=== PATIENT | female | born 1950 | race Caucasian/White ===

== ENCOUNTER 2019-09-22 11:03 | Outpatient (CLI) | payer MEDICARE ==
[2019-09-22] MEDS ORDERED: METO25TA91 PO (11:54)
[2019-09-22] MEDS ORDERED: probiotic PO (11:54)
[2019-09-22] MEDS ORDERED: acetaminophen PO (11:54)
[2019-09-22] MEDS ORDERED: TRAM50TA2 PO (11:54)
[2019-09-22] MEDS ORDERED: LOTE5DRO2 OP (11:54)
[2019-09-22] MEDS ORDERED: [UNRECOGNIZED DRUG - OTHER] OP (11:54)
[2019-09-22] MEDS ORDERED: aspirin PO (11:54)
[2019-09-22] MEDS ORDERED: synthroid PO (11:54)
[2019-09-22] MEDS ORDERED: ATORVASTATIN PO (11:54)
[2019-09-22] MEDS ORDERED: vitamin D3 PO (11:54)
[2019-09-22] MEDS ORDERED: biotin PO (11:54)
[2019-09-22] MEDS ORDERED: MULT-252 PO (11:54)
[2019-09-22] MEDS ORDERED: HYDROCORTISONE TP (11:54)
[2019-09-22] MEDS ORDERED: fish oil PO (11:54)
[2019-09-22] MEDS ORDERED: CYCL1DRO OP (11:54)
[2019-09-22] MEDS ORDERED: hyaluronic acid PO (11:54)
[2019-09-22] MEDS ORDERED: [UNRECOGNIZED DRUG - OTHER] PO (11:54)
[2019-09-22] MEDS ORDERED: trazadone PO (11:54)
[2019-09-22 12:36] LABS: MICROSCOPIC NOT IND
[2019-09-22 12:38] LABS: CULTURE INDICATED? NO
[2019-09-22 12:40] LABS: BASOPHILS # (AUTO) 0.02 x10^3/uL (0-0.1); BASOPHILS % (AUTO) 0 % (0-1); EOSINOPHILS # (AUTO) 0.12 x10^3/uL (0-0.4); EOSINOPHILS % (AUTO) 2 % (1-7); LYMPHOCYTES # (AUTO) 2.21 x10^3/uL (1-3.4); LYMPHOCYTES % (AUTO) 30 % (22-44); MD NO; MEAN CORPUSCULAR HEMOGLOBIN 32.8 pg (27.0-34.8); MEAN CORPUSCULAR HGB CONC 33.1 g/dL (32.4-35.8); MEAN CORPUSCULAR VOLUME 99.2 fL (80-100); MEAN PLATELET VOLUME 7.7 fL (7.4-10.4); MONOCYTES # (AUTO) 0.59 x10^3/uL (0.2-0.8); MONOCYTES % (AUTO) 8 % (2-9); NEUTROPHILS # (AUTO) 4.46 x10^3/uL (1.8-6.8); NEUTROPHILS % (AUTO) 60 % (42-75); PLATELET COUNT 255 x10^3/uL (130-400); RED BLOOD COUNT 4.06 x10^6/uL (3.82-5.3); RED CELL DISTRIBUTION WIDTH 14.3 % (9.6-15.2)
[2019-09-22 12:46] LABS: INTERNATIONAL NORMALIZED RATIO 1.02 (0.93-1.1); PROTHROMBIN TIME 10.7 Seconds (9.6-11.5)
[2019-09-22 12:51] LABS: ANION GAP 5 mmol/L (5-15); CALCIUM 8.9 mg/dL (8.5-10.1); CHLORIDE 109 mmol/L (98-107); CREATININE 0.74 mg/dL (0.55-1.02)
== END 2019-09-22 23:59 | disposition home or self-care (01) ==
LOC: STAR 11:03 → MERGE 11:30 → STAR 23:59
PROVIDERS: ATTEND Orthopaedic Surgery
DX: Z01.818 Encounter for other preprocedural examination (principal); M17.11 Unilateral primary osteoarthritis, right knee; I44.7 Left bundle-branch block, unspecified
CPT/HCPCS: 36415; 80048; 81003; 85025; 85610; 85730; 87081; 93005

== ENCOUNTER 2019-10-11 12:00 | Observation (INO) | payer MEDICARE ==
[~2019-10-11] VITALS: Ht 165.1 cm; Wt 75.0 kg
[~2019-10-11 12:00] MED LIST: ATORVASTATIN PO; CYCL1DRO OP; HYDROCORTISONE TP; LOTE5DRO2 OP; METO25TA91 PO; MULT-252 PO; TRAM50TA2 PO; [UNRECOGNIZED DRUG - OTHER] OP; [UNRECOGNIZED DRUG - OTHER] PO; acetaminophen PO; aspirin PO; biotin PO; fish oil PO; hyaluronic acid PO; probiotic PO; synthroid PO; trazadone PO; vitamin D3 PO
[2019-10-11] MEDS ORDERED: VANCOMYCIN PER PHARMACY MC STA (12:09)
[2019-10-11] MEDS ORDERED: LIDOCAINE-MPF 1%, 2ML INFIL ONE (12:30)
[2019-10-11] MEDS ORDERED: LACTATED RINGERS 1,000 ML IV SCH (12:30)
[2019-10-11] MEDS ORDERED: GABAPENTIN 300 MG CAPSULE PO ONE (12:30)
[2019-10-11] MEDS ORDERED: ACETAMINOPHEN 500 MG TABLET PO ONE (12:30)
[2019-10-11] MEDS ORDERED: KETOROLAC 60 MG/2 ML ONE (12:31)
[2019-10-11] MEDS ORDERED: TRANEXAMIC ACID 100 MG/ML, 10ML ONE (12:32)
[2019-10-11] MEDS ORDERED: VANCOMYCIN 1,000 MG ONE ×2 (12:32→15:46)
[2019-10-11] MEDS ORDERED: EPINEPHRINE 1 MG/ML, 1ML ONE (12:32)
[2019-10-11] MEDS ORDERED: ROPIvacaine/PF 0.2%, 20 ML ONE (12:32)
[2019-10-11 12:39] VITALS: BP 128/78
[2019-10-11] MEDS ORDERED: LIDOCAINE-MPF 1%, 2ML ONE (12:58)
[2019-10-11] MEDS ORDERED: VANCOMYCIN 1,500 MG in SODIUM CHLORIDE 0.9% 250 ML IV ONE (13:00)
[2019-10-11] MEDS ORDERED: MIDAZOLAM 1 MG/ML, 2ML ONE (13:53)
[2019-10-11] MEDS ORDERED: FENTANYL PF 100 MCG/2ML ONE (13:53)
[2019-10-11] MEDS ORDERED: PROPOFOL 50 ML ONE (15:24)
[2019-10-11] MEDS ORDERED: MEPERIDINE/PF 25MG/ML,1ML IVPush PRN (15:30)
[2019-10-11] MEDS ORDERED: METOPROLOL 1 MG/ML, 5ML IV PRN (15:30)
[2019-10-11] MEDS ORDERED: FENTANYL PF 100 MCG/2ML IV PRN (15:30)
[2019-10-11] MEDS ORDERED: OXYcodone 5 MG/5 ML ORAL.SOL UDC PO PRN (15:30)
[2019-10-11] MEDS ORDERED: hydrALAzine 20 MG/ML, 1ML IV PRN (15:30)
[2019-10-11] MEDS ORDERED: MIDAZOLAM 1 MG/ML, 2ML IV PRN (15:30)
[2019-10-11] MEDS ORDERED: HYDROmorphone 2 MG/ML, 1ML IVPush PRN (15:30)
[2019-10-11] MEDS ORDERED: ALBUTEROL/IPRATROPIUM 2.5MG/0.5MG, 3 ML NPPB PRN (15:30)
[2019-10-11] MEDS ORDERED: PROMETHAZINE 25 MG/ML, 1ML IV PRN (15:30)
[2019-10-11] MEDS ORDERED: ONDANSETRON 2MG/ML, 2ML ONE (15:34)
[2019-10-11] MEDS ORDERED: LIDOCAINE-MPF 2% ,5ML ONE (15:34)
[2019-10-11] MEDS ORDERED: PROPOFOL 10 MG/ML, 20ML ONE (15:34)
[2019-10-11] MEDS ORDERED: CEFAZOLIN 1,000 MG ONE (15:34)
[2019-10-11] MEDS ORDERED: BUPIVACAINE/PF 0.25% ONE (15:34)
[2019-10-11] MEDS ORDERED: DEXAMETHASONE 4 MG/ML, 1ML ONE (15:34)
[2019-10-11] MEDS ORDERED: LORazepam 1MG TABLET PO PRN (16:30)
[2019-10-11] MEDS ORDERED: ONDANSETRON 2MG/ML, 2ML IVPush PRN (16:30)
[2019-10-11] MEDS ORDERED: ZOLPIDEM 5MG TABLET PO PRN (16:30)
[2019-10-11] MEDS ORDERED: OXYcodone IR 5MG TABLET PO PRN (16:30)
[2019-10-11] MEDS ORDERED: ONDANSETRON 4 MG TABLET PO PRN (16:30)
[2019-10-11] MEDS ORDERED: SENNA/DOCUSATE TABLET PO PRN (16:30)
[2019-10-11] MEDS ORDERED: HYDROmorphone 1 MG/ML, 1ML INJ IVPush PRN (16:30)
[2019-10-11] MEDS ORDERED: ACETAMINOPHEN 650 MG/20.3 ML UDC PO PRN (16:30)
[2019-10-11] MEDS ORDERED: TRANEXAMIC ACID 1,000 MG in SODIUM CHLORIDE 0.9% 100 ML IVPB ONE (17:30)
[2019-10-11] MEDS ORDERED: SCOPOLAMINE PATCH, 1.5MG PATCH.TD72 TD SCH (18:30)
[2019-10-11 19:42] VITALS: BP 133/61
[2019-10-11] MEDS: SODIUM CHLORIDE 0.9% 1,000 ML IV SCH (19:43)
[2019-10-11] MEDS ORDERED: BIOTIN 5000 MCG PO SCH (21:00)
[2019-10-11] MEDS ORDERED: METOPROLOL SUCCINATE 25 MG TAB.ER.24H PO SCH (21:00)
[2019-10-11] MEDS: (Cyclosporine (Restasis) 1 DROP) OP SCH (21:19)
[2019-10-11] MEDS: OXYcodone IR 5MG TABLET PO PRN (21:19)
[2019-10-11] MEDS: OMEGA-3/FISH OIL CAPSULE PO SCH (21:19)
[2019-10-11] MEDS: PREGABALIN 75 MG CAPSULE PO SCH (21:20)
[2019-10-11] MEDS: CEFAZOLIN PMX 2GM/50ML 50 ML IVPB SCH (22:46)
[2019-10-11 23:35] VITALS: BP 120/54
[2019-10-12] MEDS: OXYcodone IR 5MG TABLET PO PRN ×2 (02:49→06:35)
[2019-10-12 03:22] VITALS: BP 113/55
[2019-10-12] MEDS: SODIUM CHLORIDE 0.9% 1,000 ML IV SCH (05:46)
[2019-10-12] MEDS ORDERED: DEXAMETHASONE 4 MG/ML, 1ML IVPush SCH (06:00)
[2019-10-12] MEDS ORDERED: ASPIRIN 81 MG TABLET EC PO SCH (06:00)
[2019-10-12] MEDS: CEFAZOLIN PMX 2GM/50ML 50 ML IVPB SCH (06:34)
[2019-10-12] MEDS ORDERED: DEXTROSE 5% IV ONE (08:30)
[2019-10-12] MEDS ORDERED: DEXAMETHASONE 4 MG/ML, 1ML IVPush ONE (08:30)
[2019-10-12] MEDS ORDERED: DEXAMETHASONE IV ONE (08:30)
[2019-10-12] MEDS ORDERED: ASCORBIC ACID 500 MG TABLET PO SCH (09:00)
[2019-10-12] MEDS ORDERED: MULTIVITAMIN 1 TABLET PO SCH (09:00)
[2019-10-12] MEDS ORDERED: MULTIVITAMINS/MINERALS TABLET PO SCH (09:00)
[2019-10-12] MEDS ORDERED: ATORVASTATIN 40 MG TABLET PO SCH (09:00)
[2019-10-12] MEDS: (Cyclosporine (Restasis) 1 DROP) OP SCH (09:00)
[2019-10-12] MEDS ORDERED: HYALURONIC ACID PO SCH (09:00)
[2019-10-12] MEDS ORDERED: PROBIOTIC PO SCH (09:00)
[2019-10-12] MEDS ORDERED: LACTOBACILLUS CHEW TABLET PO SCH (09:00)
[2019-10-12 09:03] VITALS: BP 112/45
[2019-10-12] MEDS: PREGABALIN 75 MG CAPSULE PO SCH (09:09)
[2019-10-12] MEDS: OMEGA-3/FISH OIL CAPSULE PO SCH (09:11)
[2019-10-12 12:50] VITALS: BP 137/65
== END 2019-10-12 13:00 | disposition home or self-care (01) ==
LOC: OUT 12:00 → MERGE 12:45 → ORIP 16:26 → 3WST 17:49
PROVIDERS: ADMIT Orthopaedic Surgery; ATTEND Orthopaedic Surgery
DX: M17.11 Unilateral primary osteoarthritis, right knee (principal); M21.061 Valgus deformity, not elsewhere classified, right knee; E78.5 Hyperlipidemia, unspecified; G47.33 Obstructive sleep apnea (adult) (pediatric); I11.0 Hypertensive heart disease with heart failure; I50.9 Heart failure, unspecified; I25.2 Old myocardial infarction; H40.9 Unspecified glaucoma; Z79.899 Other long term (current) drug therapy; Z68.25 Body mass index [BMI] 25.0-25.9, adult
CPT/HCPCS: 27447; 36415; 73560; 85018; 96365; 96366; 96367; 97162; C1713; C1776; G0378; J0171; J0690; J1100; J1885; J2250; J2405; J2704; J2795; J3010; J3370; J3490; J7030; J7050; J7120